=== PATIENT | female | born 1935 | race Caucasian/White ===

== ENCOUNTER 2018-02-14 13:07 | Inpatient (IN) | payer OTHER ==
[~2018-02-14] VITALS: Ht 157.5 cm; Wt 86.6 kg
--- NOTE | ~2018-02-14 | HC ---
[facility] [place] [address] CONSULTATION Name: SEAN GREEN Room #: 501-A [facility] IN ..#: [id number] Admission: 02/14/18 Attend Phys: Chauncey Hoyt MD Discharge: Date of : 35 Report #: [id number] THIS REPORT FOR: //name// CC: Chauncey Hoyt [facility] unknown DATE OF SERVICE: 02/15/2018 NEUROPSYCHOLOGICAL CONSULTATION ATTENDING PHYSICIAN: Chauncey Hoyt MD CALCULATION CLERK: Leonel Magallanes, PhD CLINICAL PRESENTATION: The patient is an 82-year-old female admitted to [facility] for comprehensive inpatient rehabilitation program to improve functional mobility, activities of daily living and self-care. She was admitted to the rehab unit following an incident in which she became short of breath and developed hypoxia. She carries diagnoses of COPD, cczsb-ln-lfrykuk hypoxic respiratory failure and small pulmonary embolism. Upon admissition she was started on Lovenox and Levaquin along with breathing treatments and IV steroids. Diagnostic impressions on admission to rehab. included medical complexity with general debility, acute on chronic respiratory failure, acute exacerbation of COPD, pulmonary embolism, obstructive sleep apnea, hypertension and history of colon cancer. A complete description of her medical condition and history can be found in her medical record. Neuropsychological consultation was requested to provide assistance in the assessment of cognitive and emotional status and to provide recommendations and services. Prior to this most recent medical event, she was living independently in her own home. She was driving and independent with instrumental activities of daily living. The patient's about 4 years ago. He had been diagnosed with Alzheimer's disease. She is from a family with 3 sisters and 2 brothers. Her 2 sisters have . She lives alone and has 4 children. Her children are described as supportive. Social support is described as very good. TECHNIQUES UTILIZED: Clinical interview, review of medical records, staff consultation and behavioral observation, mini mental status exam 2 standard version and clock drawing. EXAMINATION FINDINGS: The patient was alert and cooperative with the assessment. She accurately described events surrounding her admission. There is no evidence of aphasia. She does not report auditory or visual [facility] [address] [place] [address] CONSULTATION Name: SEAN GREEN Room #: 501-A [facility] IN .R.#: [id number] Admission: 02/14/18 Attend Phys: Chauncey Hoyt MD Discharge: Date of : 35 Report #: [id number] hallucinations. She reports mild increase in anxiety secondary to concern about her recovery and where she will be living. She denies difficulty with sleep, appetite or depression. Energy level is reduced and it is taking her more effort to do tasks that formally more easily. Her performance on the MMSE 2 brief version was within normal limits with a raw score of 15 of 16. The patient was 3/3 for initial registration, 5/5 for orientation to time and place. She was 2/3 for immediate recall of 3 items after a brief time delay and distraction. Performance on the MMSE 2 standard version was within normal limits with a raw score of 27 of 30. She was 4/5 for serial sevens, 2/2 for naming, 1/1 for repetition. Auditory comprehension was within normal limits. She could write a sentence. Her ability to follow simple written commands was within normal limits. Subtle difficulty was noted with visual spatial organization associated with drawing and copying. Clock drawing was within normal limits with number placement and hand placement. DIAGNOSTIC IMPRESSION: The patient may be presenting with mild degree of anxiety in regard to her medical well being and recovery. Cognitive functioning appears to be well maintained. RECOMMENDATIONS: While there is a mild degree of anxiety, she is alert and oriented. There may be subtle difficulty with cognition; however, it is generally within normal limits. Memory seems to be satisfactorily maintained. She may benefit from the use of relaxation techniques to help assist in the management of anxiety along with reassurance about her recovery and general well being. Thank you very much for allowing me to provide the consultation on this patient. <ELECTRONICALLY SIGNED> By: Leonel Magallanes, PhD 02/20/18 [id number] Leonel Magallanes, PhD /nt
--- NOTE | ~2018-02-14 | PLAN ---
[facility] [place] [address] REHAB UNIT PLAN OF CARE Name: SEAN GREEN Room #: 501-A ADM IN ..#: [id number] Admission: 02/14/18 Attend Phys: Chauncey Hoyt MD Discharge: Date of : 35 Report #: [id number] THIS REPORT FOR: //name// CC: Chauncey Hoyt [facility] unknown DATE OF SERVICE: 02/15/2018 The patient was seen back earlier. Most recent temperature was 36.4, pulse 112, respirations 22, blood pressure 132/62. When seen earlier. She was continuing on the nasal prong O2. Sleepy, but easily arouses. No focal calf swelling. She has been working in therapies with transfers, min assist. Gait min assist 50 feet with a front-wheeled walker. In occupational therapy, upper body dressing has not been tested yet. Lower body dressing is min assist. ASSESSMENT: 1. Medical complexity with generalized debilitation. 2. Acute on chronic respiratory failure. 3. Acute exacerbation of chronic obstructive pulmonary disease, O2 dependent. 4. Pulmonary embolism. 5. Obstructive sleep apnea. 6. Hypertension. 7. History of colon cancer. PLAN: The overall plan of care is based on the preadmission screen, post-admission physician evaluation and information garnered from therapy assessments. 1. Estimated length of stay is probably at least 7-10 days and potentially longer as needed. 2. Medical prognosis is reasonably good. 3. Anticipated interventions includes the interdisciplinary acute inpatient rehabilitation program with the goal of maximizing the patient's functional independence so that she can hopefully return back to her prior living situation. 4. Anticipated functional outcomes would be for the patient to become modified independent with transfers, mobility and ADLs, so she can hopefully return back to her prior living situation. 5. Discharge destination would be back where she was living alone in a house. 6. Expected therapy by discipline includes PT and OT 1-1/2 hours per day each five days a week throughout the duration of the acute inpatient rehabilitation stay. <ELECTRONICALLY SIGNED> By: Chauncey Hoyt MD 02/19/18 1504 [id number] Chauncey Hoyt MD /[facility]
--- NOTE | ~2018-02-14 | H ---
[facility] [place] [address] HISTORY AND PHYSICAL Name: SEAN GREEN Room #: 501-A ADM IN .R.#: [id number] Admission: 02/14/18 Attend Phys: Chauncey Hoyt MD Discharge: Date of : 35 Report #: [id number] THIS REPORT FOR: //name// CC: Chauncey Hoyt [facility] unknown DATE OF SERVICE: 02/14/2018 ADDENDUM HISTORY AND PHYSICAL/POSTADMISSION PHYSICIAN EVALUATION Dictated by nurse practitioner, Atiya Hilliard. Please see my prior consultation. HISTORY OF PRESENT ILLNESS: The patient was seen after admission to the inpatient [facility]. She was in no distress. Admitted for an acute rehab stay. I agree with the history and physical as noted. She continues on O2 and had an acute exacerbation of COPD with acute on chronic respiratory failure complicated by a pulmonary embolism. She has some decreased breath sounds of her lungs. No calf swelling. She is debilitated. She has now been admitted for acute in-hospital inpatient rehabilitation. PLAN: The overall plan of care is based on the preadmission screen, post-admission physician evaluation and information garnered from therapy assessments. 1. Estimated length of stay is probably 10 days to 2 weeks. 2. Medical prognosis is reasonably good. 3. Anticipated interventions include the interdisciplinary acute inpatient rehabilitation program with the goal of maximizing her functional independence, so she can return back to the home setting. 4. Discharge destination is back to her own home where she lives alone. 5. Expected therapy by discipline includes PT and OT 1 and 1-1/2 hours per day each five days a week throughout the duration of the acute inpatient rehabilitation stay. <ELECTRONICALLY SIGNED> By: Chauncey Hoyt MD 02/19/18 1504 [id number] Chauncey Hoyt MD /[facility]
--- NOTE | ~2018-02-14 | H ---
[facility] [place] [address] HISTORY AND PHYSICAL Name: SEAN GREEN Room #: 504-2 ADM IN M.R.#: [id number] Admission: 02/14/18 Attend Phys: Chauncey Hoyt MD Discharge: Date of : 35 Report #: [id number] THIS REPORT FOR: //name// CC: Chauncey Hoyt [facility] unknown DATE OF SERVICE: 02/14/2018 CHIEF COMPLAINT: Medical complexity with general debilitation, admit H&P. HISTORY OF PRESENT ILLNESS: This is an 82-year-old female admitted to [facility] on 02/11/2018. She was sent over by her senior mortgage loan processor, Dr. Gonzales, after noting she was hypoxic in his office. She had been treated with prednisone and doxycycline outpatient for bronchitis and symptoms had not improved. In the Emergency Department, she was diagnosed with mkxii-ra-mzbliht hypoxic respiratory failure secondary to her underlying COPD. Further testing with CT scan revealed a small pulmonary embolism. She was started on Lovenox treatment. She was treated with Levaquin, breathing treatments, IV steroids and mucolytics. Her symptoms stabilized and due to her multiple comorbidities and weakness, she has been admitted to acute inpatient rehabilitation. Today, she is seen in her room. She relates feeling better, less short of breath with ambulation. She is requiring 4 liters O2, which her baseline is 2 liters O2 at home. She does have a mild cough, mostly nonproductive at this time. She denies chest pain. No nausea or constipation. Her appetite is improved. She does wear home CPAP at night for her obstructive sleep apnea. PAST MEDICAL HISTORY: COPD, O2 dependent, obstructive sleep apnea, hypertension, arthritis, glaucoma, history of colon cancer. PAST SURGICAL HISTORY: Colon resection and hysterectomy. ALLERGIES: None. SOCIAL HISTORY: Resident, lives alone. Her living space is on 1 floor. She has 3 steps to enter house and 13 steps inside house. Basement is where the laundry is; however, she reports someone does her laundry. The patient is an ex-smoker. She quit in 1996 after smoking less than a pack per day for about 20 years. She drinks one glass of wine a week. Denies any illicit drug abuse, premorbid. She utilized a walker for longer distances. She continues to drive. CURRENT MEDICATIONS: Lisinopril 20 mg daily, acetylcysteine 100 mg q. 6 hours inhalation, calcium carbonate 500 mg q. 8 hours p.r.n., Lovenox 80 mg twice a day subQ, Celexa 10 mg daily, Celebrex 200 mg daily, Protonix 40 mg daily, Tylenol 650 q. 8 hours p.r.n., ibuprofen 400 mg q. 6 hours p.r.n., latanoprost 1 drop at bedtime, Zofran 4 mg q. 6 hours p.r.n., Solu-Medrol 60 mg q. 6 hours IV, [facility] [address] [place] [address] HISTORY AND PHYSICAL Name: SEAN GREEN Room #: 504-2 ADM IN M.R.#: [id number] Admission: 02/14/18 Attend Phys: Chauncey Hoyt MD Discharge: Date of : 35 Report #: [id number] budesonide 0.5 mg twice a day inhalation, levalbuterol q. 6 hours inhalation and q. 2 hours p.r.n., Levaquin 500 mg IV daily. REVIEW OF SYSTEMS: Remainder of a 12-point review of systems is negative except as listed in HPI. PHYSICAL EXAMINATION: VITAL SIGNS: Blood pressure 157/57, pulse 97, temperature 36.7, respirations 20. She is 94% oxygen on 4 liters nasal cannula. GENERAL: She is awake, alert, oriented x 4, very pleasant, in no acute distress. HEENT: EOMs are intact. No nystagmus. CARDIOVASCULAR: Regular rate and rhythm. CHEST: Lungs diminished with a few bilateral crackles. ABDOMEN: Bowel sounds are positive. Soft, nontender, nondistended. EXTREMITIES: Bilateral lower extremities trace edema. SKIN: Bruising to her upper extremities, otherwise intact. No wounds, no rash. NEUROLOGIC: Sensation intact bilateral. Cranial nerves 2-12 grossly intact. Extremities functional range of motion intact. No tremors, no clonus. 4/5 strength. Tone intact. She is contact guard assist to ambulate 30 feet x 2 with a front-wheeled walker. She is min assist for sit to stand, min assist for lower extremity dressing. LABORATORY DATA: Chest x-ray from 02/14 shows minimal bibasilar consolidative opacities, more prominent on the right, likely infiltrations. On 02/14/2018, sodium 139, potassium 4.5, BUN 30, creatinine 0.9, glucose 170, calcium 9.0. WBC is 12.3, hemoglobin 13.6, hematocrit 40.8, platelets 252. AFB culture negative. On 02/12/2018, bilateral venous Dopplers negative for DVT. On 02/12, echocardiogram shows left ventricular ejection fraction of 65-70% with grade 1 diastolic dysfunction. On 02/12/2018, CTA chest PE protocol confirms a tiny embolus in the medial basilar segment of the right lower lobe. There is, otherwise, normal pulmonary perfusion. ASSESSMENT: 1. Medical complexity with general debilitation. 2. Dbcax-gd-yevnmgb respiratory failure. 3. Acute exacerbation of chronic obstructive pulmonary disease, O2 dependent. 4. Pulmonary embolism. 5. Obstructive sleep apnea. 6. Hypertension. 7. History of colon cancer. PLAN: The patient has been admitted to inpatient rehabilitation unit to involve interdisciplinary therapy team with her goal to return back to her home setting. [facility] [address] [place] [address] HISTORY AND PHYSICAL Name: SEAN GREEN Donna Room #: 504-2 ADM IN Donna#: [id number] Admission: 02/14/18 Attend Phys: Chauncey Hoyt MD Discharge: Date of : 35 Report #: [id number] ADDENDUM HISTORY AND PHYSICAL/POSTADMISSION PHYSICIAN EVALUATION Dictated by nurse practitioner, Atiya Hilliard. Please see my prior consultation. HISTORY OF PRESENT ILLNESS: The patient was seen after admission to the [facility]. She was in no distress. Admitted for an acute rehab stay. I agree with the history and physical as noted. She continues on O2 and had an acute exacerbation of COPD with acute on chronic respiratory failure complicated by a pulmonary embolism. She has some decreased breath sounds of her lungs. No calf swelling. She is debilitated. She has now been admitted for acute in-hospital inpatient rehabilitation. PLAN: The overall plan of care is based on the preadmission screen, post-admission physician evaluation and information garnered from therapy assessments. 1. Estimated length of stay is probably 10 days to 2 weeks. 2. Medical prognosis is reasonably good. 3. Anticipated interventions include the interdisciplinary acute inpatient rehabilitation program with the goal of maximizing her functional independence, so she can return back to the home setting. 4. Discharge destination is back to her own home where she lives alone. 5. Expected therapy by discipline includes PT and OT 1 and 1-1/2 hours per day each five days a week throughout the duration of the acute inpatient rehabilitation stay. Chauncey Hoyt M.D. <ELECTRONICALLY SIGNED> By: YANETH Johns 02/17/18 1352 [id number] YANETH Johns /andrea
[~2018-02-14 13:07] MED LIST: ADVAIR HFA 230M12 GM INJECTION; CELEBREX 200 M200 M1 PO; DUONEB 2.5-0.5 M3 ML INH; IBUPROFEN 200200 M1 PO; LEXAPRO 10 MG T10 M1 PO; LISINOPRIL10 MG PO; SPIRIVA INH; TYLENOL325 MG PO; XALATAN2.5 ML OPHTHALMIC
[2018-02-14] MEDS ORDERED: PULMICORT0.5 MG/21 INH (14:50)
[2018-02-14] MEDS ORDERED: PREDNISONE 20 M20 MG PO (14:50)
[2018-02-14] MEDS ORDERED: PROTONIX 20 MG20 M1 PO (14:50)
[2018-02-14] MEDS ORDERED: LISINOPRIL10 MG PO (14:50)
[2018-02-14] MEDS ORDERED: MUCINEX600 MG PO (14:50)
[2018-02-14] MEDS ORDERED: LEVAQUIN 500 M500 M2 PO (14:50)
[2018-02-14] MEDS ORDERED: ENOXAPARIN80 MG/0.1 SUBQ (14:50)
[2018-02-14] MEDS ORDERED: CALTRATE-600 W1 EACH PO (14:50)
[2018-02-14 20:25] VITALS: BP 150/77
[2018-02-15 06:24] LABS: HEMATOCRIT 39.2 % (37.0-47.0); MCH 28.4 pg (26.0-34.0); MCHC 33.2 g/dL (28.0-37.0); MCV 85.5 fL (80.0-100.0); RBC 4.59 mil/uL (4.20-5.00); RDW 13.8 % (10.5-14.5); WBC 9.1 thou/uL (4.0-11.0)
[2018-02-15 06:37] LABS: CREATININE 0.9 mg/dL (0.6-1.0); POTASSIUM 4.1 mmol/L (3.5-5.1)
[2018-02-15 08:00] VITALS: BP 132/62
[2018-02-15 19:50] VITALS: BP 148/73
[2018-02-16 05:26] LABS: ABSOLUTE NEUTROPHILS 6.8 thou/uL (1.4-8.2); HEMOGLOBIN 14.1 gm/dL (12.0-15.0); MCH 28.3 pg (26.0-34.0); POLYS 86.5 % (36.0-66.0); RDW 14.4 % (10.5-14.5); WBC 7.8 thou/uL (4.0-11.0)
[2018-02-16 05:29] LABS: BASOPHILS 0.1 % (0.0-2.0); HEMATOCRIT 42.5 % (37.0-47.0); LYMPHOCYTES 9.2 % (24.0-44.0); MCHC 33.2 g/dL (28.0-37.0); MCV 85.3 fL (80.0-100.0); MONOCYTES 4.2 % (1.0-8.0); PLATELET COUNT 206 thou/uL (150-400); RBC 4.99 mil/uL (4.20-5.00)
[2018-02-16 05:38] LABS: CALCIUM 9.5 mg/dL (8.5-10.1); CREATININE 0.8 mg/dL (0.6-1.0); POTASSIUM 4.9 mmol/L (3.5-5.1)
[2018-02-16 07:30] VITALS: BP 134/57
[2018-02-16 19:20] VITALS: BP 118/63
[2018-02-17 07:16] VITALS: BP 145/69
[2018-02-17 20:00] VITALS: BP 140/62
[2018-02-18 08:00] VITALS: BP 139/81
[2018-02-18 19:20] VITALS: BP 146/61
[2018-02-19 04:51] LABS: INR 1.1; PROTIME 10.9 Seconds (9.3-11.4)
[2018-02-19 14:59] VITALS: BP 130/62
[2018-02-19 19:00] VITALS: BP 125/47
[2018-02-20 06:05] LABS: HEMOGLOBIN 12.6 gm/dL (12.0-15.0); MCH 28.4 pg (26.0-34.0); MCHC 33.1 g/dL (28.0-37.0); MCV 85.7 fL (80.0-100.0); PLATELET COUNT 170 thou/uL (150-400); RBC 4.44 mil/uL (4.20-5.00); RDW 14.3 % (10.5-14.5); WBC 9.8 thou/uL (4.0-11.0)
[2018-02-20 06:17] LABS: CALCIUM 8.9 mg/dL (8.5-10.1); CREATININE 0.7 mg/dL (0.6-1.0); MAGNESIUM 2.3 mg/dL (1.8-2.4); POTASSIUM 4.3 mmol/L (3.5-5.1)
[2018-02-20 06:20] LABS: INR 1.2; PROTIME 12.4 Seconds (9.3-11.4)
[2018-02-20 07:28] LABS: ABSOLUTE NEUTROPHILS 5.3 thou/uL (1.4-8.2); ANISOCYTOSIS SLIGHT; METAMYELOCYTES 1 %
[2018-02-20] MEDS ORDERED: ELIQUIS5 MG PO (07:56)
[2018-02-20 08:33] VITALS: BP 103/45
[2018-02-20 15:22] VITALS: BP 130/62
[2018-02-20 20:03] VITALS: BP 123/66
[2018-02-21 06:13] LABS: INR 1.3; PROTIME 12.9 Seconds (9.3-11.4)
[2018-02-21 07:43] VITALS: BP 135/73
[2018-02-21 11:29] VITALS: BP 130/62
[2018-02-21 11:30] VITALS: BP 130/57
[2018-02-21 15:00] VITALS: BP 130/62
== END 2018-02-21 15:13 | disposition home health service (06) | DRG 947 ==
LOC: ENTRNSPT 02-21 14:39 → EDTRNSPTSTS 02-21 14:42
PROVIDERS: Hospitalist; Internal Medicine Pulmonary Disease; Nurse Practitioner; Nurse Practitioner Family
DX: R53.81 Other malaise (principal); I26.99 Other pulmonary embolism without acute cor pulmonale; J96.21 Acute and chronic respiratory failure with hypoxia; J44.1 Chronic obstructive pulmonary disease with (acute) exacerbation; G47.33 Obstructive sleep apnea (adult) (pediatric); I10 Essential (primary) hypertension; F41.9 Anxiety disorder, unspecified; M19.90 Unspecified osteoarthritis, unspecified site; H40.9 Unspecified glaucoma; Z60.2 Problems related to living alone; K59.00 Constipation, unspecified; Z99.81 Dependence on supplemental oxygen; Z85.038 Personal history of other malignant neoplasm of large intestine; Z90.710 Acquired absence of both cervix and uterus; Z90.49 Acquired absence of other specified parts of digestive tract
CPT/HCPCS: 10092; 10112